=== PATIENT | female | born 1975 | race Two or more races ===

== ENCOUNTER 2017-04-26 10:08 | Emergency (ER) | payer MEDICAID ==
[~2017-04-26] VITALS: Ht 160 cm; Wt 58.5 kg
[2017-04-26 10:41] VITALS: BP 109/66
[2017-04-26 10:53] LABS: BASOPHILS % (AUTO) 0.7 % (0.0-2.0); EOSINOPHILS % (AUTO) 7.7 % (0.0-3.0); LYMPHOCYTES % (AUTO) 8.1 % (20.0-45.0); MEAN CORPUSCULAR HEMOGLOBIN 28.9 PG (27.0-31.0); MEAN CORPUSCULAR HGB CONC 33.4 G/DL (32.0-36.0); MEAN CORPUSCULAR VOLUME 87 FL (80-99); MEAN PLATELET VOLUME 6.8 FL (6.5-10.1); MONOCYTES % (AUTO) 5.1 % (1.0-10.0); NEUTROPHILS % (AUTO) 78.4 % (45.0-75.0); PLATELET COUNT 124 K/UL (150-450); RED BLOOD COUNT 5.65 M/UL (4.20-5.40); RED CELL DISTRIBUTION WIDTH 10.8 % (11.6-14.8); WHITE BLOOD COUNT 4.8 K/UL (4.8-10.8)
[2017-04-26 11:09] LABS: ALANINE AMINOTRANSFERASE 47 U/L (3-33); ALBUMIN/GLOBULIN RATIO 1.3 (1.0-2.7); ANION GAP 14 (5-15); ASPARTATE AMINO TRANSFERASE 57 U/L (5-40); CALCIUM 8.7 mg/dL (8.6-10.2); CARBON DIOXIDE 20 mEQ/L (20-30); CHLORIDE 102 mEQ/L (98-107); CREATININE 0.8 mg/dL (0.5-0.9); GLOMERULAR FILTRATION RATE > 60 mL/min (>60); HEMOLYSIS 7; POTASSIUM 3.9 mEQ/L (3.4-4.9); SODIUM 136 mEQ/L (135-145); TOTAL PROTEIN 6.7 g/dL (6.6-8.7)
[2017-04-26] MEDS ORDERED: IBUPROFEN600 MG ORAL (11:25)
[2017-04-26 11:55] VITALS: BP 107/60
--- NOTE | 2017-04-26 11:58 | Diagnostic Imaging Report ---
Indication: COUGH Technique: Single portable AP view of the chest. Findings: Comparison: None. The bones and extra pulmonary soft tissues, cardiomediastinal silhouette, pulmonary vasculature and parenchyma, and pleural surfaces are unremarkable. IMPRESSION: Negative portable AP chest.
--- NOTE | 2017-04-26 14:40 | Emergency Room Report ---
History of Present Illness General Chief Complaint: Fever Source: Patient Present Illness HPI Patient presents emergency department today complaining of diffuse rash distributed throughout the body a social fevers runny nose cough sore throat and conjunctivitis. Patient is from [place]. She states that she saw primary care physician a few days ago and received hydroxyzine. Patient is not sure if she is f vaccinated. She denies any other complaints. She denies any chest pain or shortness of breath. She does not remember any sick contacts.No other modifying factors. No other associated signs and symptoms. No other complaints were noted. Allergies: Coded Allergies: No Known Allergies (Unverified , 04/26/17) Patient History Past Medical History: none Past Surgical History: none Pertinent Family History: none Social History: Denies: alcohol use, drug use, smoking Last Menstrual Period: 04/19/17 Now: No : 3 Para: 3 Reviewed Nursing Documentation: PMH: Agreed, PSxH: Agreed Nursing Documentation-PMH Past Medical History: No Stated History Review of Systems All Other Systems: negative except mentioned in HPI Physical Exam Vital Signs Date Time Temp Pulse Resp B/P Pulse Ox O2 Delivery O2 Flow Rate FiO2 04/26/17 10:13 99.9 122 18 101/71 96 Room Air Sp02 EP Interpretation: reviewed, normal General Appearance: well appearing, no apparent distress, alert Head: atraumatic Eyes: bilateral eye normal inspection, bilateral eye other - Bilateral conjunctivitis ENT: hearing grossly normal, normal voice, pharyngeal erythema Neck: normal inspection, full range of motion, supple, no bony tend Respiratory: normal inspection, lungs clear, normal breath sounds, no respiratory distress, no retraction, no wheezing Cardiovascular #1: regular rate, rhythm, no edema Gastrointestinal: normal inspection, normal bowel sounds, non tender, soft, no guarding, no hernia Genitourinary: no CVA tenderness Musculoskeletal: normal inspection, back normal, normal range of motion Neurologic: normal inspection, alert, responsive, speech normal Psychiatric: normal inspection, judgement/insight normal, mood/affect normal Skin: rash - diffusely patchy blanching consistent with measles Medical Decision Making Diagnostic Impression: Primary Impression: Measles Qualified Codes: B05.9 - Measles without complication Additional Impression: Fever Qualified Codes: R50.9 - Fever, unspecified ER Course Patient presents emergency department today complaining of fever bodyaches sore throat and conjunctivitis. She also complains of a rash. Differential considerations include viral syndrome, measles, allergic reaction, strep throat just to name a few. Patient exam is consistent with likely a viral infection given the appearance a rash I felt that this was likely measles. Laboratory workup was obtained. X-ray did not show any evidence of infiltrate. Patient will be discharged with precautions to avoid transmission. Report was made to Department of Public Health.Patient is advised to follow up with primary doctor in 2-3 days and return the emergency room for any worsening symptoms and as needed. Labs Test 04/26/17 10:40 White Blood Count 4.8 K/UL (4.8-10.8) Red Blood Count 5.65 M/UL (4.20-5.40) Hemoglobin 16.3 G/DL (12.0-16.0) Hematocrit 48.9 % (37.0-47.0) Mean Corpuscular Volume 87 FL (80-99) Mean Corpuscular Hemoglobin 28.9 PG (27.0-31.0) Mean Corpuscular Hemoglobin Concent 33.4 G/DL (32.0-36.0) Red Cell Distribution Width 10.8 % (11.6-14.8) Platelet Count 124 K/UL (150-450) Mean Platelet Volume 6.8 FL (6.5-10.1) Neutrophils (%) (Auto) 78.4 % (45.0-75.0) Lymphocytes (%) (Auto) 8.1 % (20.0-45.0) Monocytes (%) (Auto) 5.1 % (1.0-10.0) Eosinophils (%) (Auto) 7.7 % (0.0-3.0) Basophils (%) (Auto) 0.7 % (0.0-2.0) Sodium Level 136 mEQ/L (135-145) Potassium Level 3.9 mEQ/L (3.4-4.9) Chloride Level 102 mEQ/L (98-107) Carbon Dioxide Level 20 mEQ/L (20-30) Anion Gap 14 (5-15) Blood Urea Nitrogen 5 mg/dL (7-23) Creatinine 0.8 mg/dL (0.5-0.9) Estimat Glomerular Filtration Rate > 60 mL/min (>60) Glucose Level 150 mg/dL (74-106) Calcium Level 8.7 mg/dL (8.6-10.2) Total Bilirubin 0.5 mg/dL (0.0-1.2) Aspartate Amino Transf (AST/SGOT) 57 U/L (5-40) Alanine Aminotransferase (ALT/SGPT) 47 U/L (3-33) Alkaline Phosphatase 129 U/L (35-104) Total Protein 6.7 g/dL (6.6-8.7) Albumin 3.8 g/dL (3.5-5.2) Globulin 2.9 g/dL Albumin/Globulin Ratio 1.3 (1.0-2.7) Chest X-Ray Diagnostic Results Chest X-Ray Diagnostic Results : Chest X-Ray Ordered: Yes # of Views/Limited/Complete: 1 View Indication: Other - cough EP Interpretation: No Interpretation: no consolidation, no effusion Impression: No acute disease Last Vital Signs Date Time Temp Pulse Resp B/P Pulse Ox O2 Delivery O2 Flow Rate FiO2 04/26/17 11:55 99.9 117 17 107/60 98 Room Air Status: improved Disposition: HOME, SELF-CARE Condition: Stable Scripts Ibuprofen* (MOTRIN*) 600 Mg Tablet 600 MG ORAL Q8H Y for For Pain, #30 TAB 0 Refills Prov: RUDDY ALLRED M.D. 04/26/17 Patient Instructions: Fever, Adult, [id number], Measles, Adult RUDDY ALLRED M.D. Apr 26, 2017 14:40
== END 2017-04-26 11:55 | disposition home or self-care (01) ==
LOC: EMR 10:31
DX: B05.9 Measles without complication (principal)
CPT/HCPCS: 36415; 71010; 80053; 85025; 86765; 99283